=== PATIENT | female | born 1975 | race Caucasian/White ===

== ENCOUNTER → 2020-02-08 10:33 | Outpatient (BNVA) | payer OTHER, SELFPAY | PROVIDERS: Family Provider Internal Medicine; Visit Provider Nurse Practitioner Family | DX: Z20.828 Contact with and (suspected) exposure to other viral communicable diseases (principal) | CPT/HCPCS: 87635 ==

== ENCOUNTER → 2023-01-30 10:17 | Outpatient (BNVA) | payer OTHER, SELFPAY | PROVIDERS: Family Provider Internal Medicine; PCP Family Medicine; Visit Provider Physician Assistant | DX: M23.207 Derangement of unspecified meniscus due to old tear or injury, left knee | CPT/HCPCS: 73560; 73565 ==

== ENCOUNTER 2023-03-05 07:59 | Day surgery (SDC) | payer OTHER, SELFPAY ==
[2023-03-05] VITALS (8 sets, daily range): BP systolic 100–120; BP diastolic 68–85; PULSE 73–107; RESP 16–18; TEMP 36.1–36.2; O2SAT 99–100; BMI 21.2
[2023-03-05] MEDS: scopolamine 1.5 Patch 1 PATCH TRANSDERMA (08:29)
[2023-03-05] MEDS: ketorolac 30 mg/mL INJ IVP (08:29)
[2023-03-05] MEDS: acetaminophen 1,000 MG/100 ML PIGGYBACK 400 MG IV (08:30)
[2023-03-05] MEDS: sodium chloride 0.9% 1,000 ML 30 ML IV (08:32)
--- NOTE | 2023-03-05 08:52 | ANES.PREANE2 ---
Pre-Anesthetic Assessment Height/Weight: Height 1.73 m Weight 63.503 kg Temp Pulse Resp BP Pulse Ox O2 Del Method 97.1 F L 73 17 100/68 100 Room Air 03/05/23 08:14 03/05/23 08:14 03/05/23 08:14 03/05/23 08:14 03/05/23 08:14 03/05/23 08:21 Operation Date: 03/05/23 09:30 Proposed Procedures p Knee Arthroscopy Knee Arthroscopy w/ Medial Menisectomy (partial) vs. repair(Left) - Vipul Jeffries DO Familial anesthetic complications: None Was Beta Nella taken within 24 hours: N/A Was Clonidine taken within 24 hours: N/A Last intake: Intake Last Liquid Date 03/04/23 Last Liquid Time 19:00 Last Solid Date 03/04/23 Last Solid Time 19:00 Social Alcohol (occassional) and No tobacco Exam alert, oriented x 3, clear to auscultation bilaterally and regular rate & rhythm Airway Mallampati: Class II Dentition: full Anesthetic Plan ASA status: 1 Anesthesia: General Risk of > 500 ml blood loss (7ml/kg in children): No Medications/Allergies Home Medications Medication Instructions Recorded Confirmed Last Taken Type citalopram 10 mg tablet 10 mg PO DAILY 02/08/20 03/04/23 03/05/23 History omeprazole 40 mg capsule,delayed 40 mg PO DAILY 02/08/20 03/04/23 03/05/23 History release spironolactone 100 mg tablet 100 mg PO DAILY 02/08/20 03/04/23 03/04/23 History Allergies Allergy/AdvReac Type Severity Reaction Status Date / Time No Known Allergies Allergy Verified 02/11/23 15:33 Current Medications Generic Name Dose Route Start Last Admin Trade Name Freq PRN Reason Stop Dose Admin Sodium Chloride 1,000 mls @ 30 mls/hr 03/05/23 08:15 03/05/23 08:32 Sodium Chloride 0.9% IV 03/06/23 08:14 30 mls/hr .Q24H DEEJAY Administration PFSH Anesthesia Family History Denies family history of Anesthesia complication Social History Smoking and tobacco/nicotine status: never used tobacco/nicotine Alcohol intake: current Alcohol intake frequency: holidays/special occasions only Female Reproductive History Date of last menstrual period: 02/03/23 Data Anesthesia Cardiac Studies: No Data to Display
--- NOTE | 2023-03-05 09:20 | W.PM.OPSUD ---
Surgery/Procedure H&P Update DATE OF PROCEDURE: March 05, 2023 DATE H&P PERFORMED: 02/11/23 H&P UPDATE INFORMATION: I have reviewed H&P completed within last 30 days, I have examined patient prior to procedure and No changes to prior documentation PREOP DIAGNOSIS: Left knee medial meniscus tear, MCL sprain PRIMARY INDICATION FOR PROCEDURE: Left knee medial meniscus tear, MCL sprain PLANNED PROCEDURE: Operation Date: 03/05/23 09:30 Proposed Procedures p Knee Arthroscopy Knee Arthroscopy w/ Medial Menisectomy (partial) vs. repair(Left) - Vipul Jeffries DO
[2023-03-05] MEDS: ceFAZolin 2,000 MG in sodium chloride 0.9% (plus) 50 ML 100 MG IV (09:28)
[2023-03-05] MEDS: lidocaine-epi 2% 20 mL INJ 40 ML INJECTION (09:59)
--- NOTE | 2023-03-05 10:29 | P.BOP_ITS ---
Date of Procedure: [March 05, 2023] Surgeon: [Dr. Nesha WARREN] Certified Industrial Hygienist(s): [Marcus Jeffries physician associate] Procedure(s) performed: [Left knee diagnostic arthroscopy with medial meniscus repair, patellofemoral chondroplasty and extensive synovectomy] Findings of the procedure(s): [Left knee medial meniscus tear] Estimated blood loss: [5 mL] Specimen(s) removed: [N/A] Post-operative diagnosis: [Left knee medial meniscus tear]
--- NOTE | 2023-03-05 10:31 | PM.PACU ---
PACU note Narrative: Patient is a 47-year-old female that underwent a left knee diagnostic arthroscopy with medial meniscus repair. pt transferred to PACU in stable condition. Dressing is dry. Patient is wearing left knee immobilizer. Pt is awake and alert. pt can wiggle toes and plantarflex and dorsiflex foot. pt able to perform straight leg raise, Femoral nerve intact. Distal pulses are palpable toes are warm and well-perfused. Cap refill is normal and under 2 seconds. Sensation to foot is intact. Pain is controlled. Exam: awake Disposition: discharged
[2023-03-05] MEDS: HYDROcodone-acetaminophen 5-325 mg Tablet 1 TAB PO (11:43)
--- NOTE | 2023-03-05 17:38 | PM.OP ---
Operative Report Date of procedure: March 05, 2023 Pre-op diagnosis: Left knee medial meniscus tear and MCL sprain Implants: Arthrex meniscal fiber stitch x1 Surgeon: Vipul Jeffries DO Learning And Development Coordinator: Marcus Jeffries PA-C: RICHI was necessary for assistance in this case by holding leg positioning as well as to assist with instrumentation and medial meniscus repair as well as assist in wound closure. Procedure: Post-op diagnosis: Left?knee?medial meniscus tear Left?knee?extensive synovitis Left knee patellofemoral chondromalacia Procedure done: Left?knee?diagnostic and surgical arthroscopy medial meniscus repair Left?knee?diagnostic and surgical arthroscopy with extensive synovectomy of the medial lateral and patellofemoral compartments Left?knee?diagnostic and surgical arthroscopy with patellofemoral compartment chondroplasty Surgeon: Vipul Jeffries DO Estimated blood loss: 1cc Tourniquet: No tourniquet was used IV fluids: See anesthesia record Complications: None Findings: See operative report narrative Condition: stable Disposition: same day Brief History: Patient is a 47-year-old male with right?knee?pain.? Patient has failed conservative treatment who has been worked up for left knee?pain in the outpatient setting. MRI findings consistent with tear of the medial meniscus and MCL sprain. talked in the office about treatment options patient would like to proceed with a left?knee?diagnostic and surgical arthroscopy with partial medial meniscectomy versus repairy.? Patient understand the ins and outs of the procedure the risk benefits complication alternatives to treatment options.? Understanding risk of surgery they agree to proceed with surgical intervention.?? Understanding this and patient agree to proceed with surgical intervention all questions answered. Procedure: Patient seen and evaluated in the preoperative holding area.? Consent was reviewed and signed with patient.? Correct extremity was then marked.? Patient seen evaluated Anesthesia Department once cleared for surgery patient was taken back to the operative suite.? Patient was transported onto the OR table in supine position.? All bony prominences well-padded patient was appropriate secured to the bed.? Once appropriately anesthetized a nonsterile tourniquet was applied to the left thigh.? The left lower extremity was then prepped and draped in standard orthopedic fashion.? Final timeout performed.? Patient received appropriate preoperative antibiotics. Patient received local anesthetic of lidocaine with epinephrine into the joint as well as around the portal sites.? No tourniquet was inflated A standard 2 portal vertical incision diagnostic and surgical arthroscopy of the right?knee?was performed in standard fashion.? Small stab incision made in the inferolateral portal introduced trocar and arthroscope into the suprapatellar pouch.? Suprapatellar pouch was subsequently visualized and found to have significant synovitis but no loose bodies.? Patient had noticeable significant inflamed infrapatellar fat pad and thickening hypertrophic within the patellofemoral compartment.? ?The medial gutter was free of loose bodies I then introduced the arthroscope into the medial compartment.? Within the medial compartment I then established my inferior medial working portal utilizing spinal needle outside in technique.? Once established I then visualized our articular cartilage of the medial compartment with a valgus stress.? Patient was found to have grade 1-2chondromalacia throughout the medial compartment.? Next I inspected the meniscus.? With an arthroscopic probe was utilized to visual? all aspects of the meniscus.? Meniscal root was found to be intact.? Tear at the meniscocapsular junction at the transition of the body to the posterior horn of the medial meniscus the meniscus was found to be extremely hyper unstable and was able to be pulled and through the tear and completely into the joint. In order to restore stability as well as the tear being located along the periphery and red red zone I felt this would be appropriate for repair and given her young age and good appearing cartilage on my arthroscopy procedure elected for repair. This was a small tear. In order for appropriate visualization and not damaging the cartilage utilize a spinal needle with small fenestration of the MCL to have medial space opening. Once this was performed I then introduced a half pipe and loaded and Arthrex fiber stitch implant this was then glided into the appropriate position with care to not damage the articular cartilage. I then placed a simple horizontal mattress stitch at the tear site to adhere to repair the undersurface tear of the meniscus at the meniscal capsular junction this had excellent adherence I then subsequently utilized arthroscopic suture cutter to remove excess suture I then introduced the arthroscopic probe and was found to have a stable meniscal repair. This completed medial compartment work. Next a introduced the arthroscope to the intercondylar notch.? PCL and ACL were intact. patient had significant thickening of the infrapatellar fat pad spanning into the medial and lateral compartments.? I then performed an extensive synovectomy with the arthroscopic shaver of the patellofemoral medial and lateral compartments as well as the intercondylar notch. Advance the?scope?into the retrocruciate space and no loose bodies were found. Next I introduced the arthroscope into the lateral compartment the lateral compartment was found to have grade1 chondromalacia.? Lateral meniscus was found to be intact.? The root was intact.? Given the grade 1 chondromalacia there is no unstable cartilage pieces to perform chondroplasty.? This completed my work of the lateral compartment and then performed a synovectomy of the lateral compartment.? Next of the arthroscope was placed into the lateral gutter and this was free of loose bodies.? Finally I reintroduced the arthroscope into the patellofemoral compartment.? The patellofemoral was found to have grade 1-2 chondromalacia of the patellofemoral compartment. There was a small focal area of advanced grade 2 I then utilized thermal wand and arthroscopic shaver to debride this area of unstable articular tissue to stable articular cartilage. This completed my patellofemoral compartment chondroplasty. at this point I utilized arthroscopic shaver as well as thermal wand to perform extensive synovectomy of the patellofemoral compartment. This completed my work of the patellofemoral space.? I then switch my portal sites to the medial working portal.? Completed the rest of my synovectomy and the rest of my examination arthroscopy was normal. All fluid was suctioned from the joint.? ?All instruments were withdrawn.? Portal sites were closed with interrupted nylon suture.? portal sites were then covered with with Xeroform 4 x 4's ABD Curlex and Nestor wrap.? Patient was then subsequently awakened from anesthesia and taken to PACU in stable condition. Disposition: Patient taken to PACU in stable condition recovering well.? Will receive appropriate discharge structure as well as pain medication postoperatively as well as? DVT prophylaxis.we will have patient follow-up with us in the office in 2 weeks.? Patient will be toe-touch weightbearing to the operative extremity. Patient will follow meniscal repair protocol will be limited on knee range of motion only 0-90 for the first 6 weeks. Patient placed into a hinged knee brace postoperatively.? Patient understands and agrees with current plan.? All questions answered..
[2023-03-06 07:40] LABS: OR HCG Qualitative Urine Negative (Negative)
== END 2023-03-05 12:05 | disposition home or self-care (01) ==
PROVIDERS: PCP Family Medicine; Visit Provider Student in an Organized Health Care Education/Training Program
PROC: (CPT 29870; principal; 2023-03-05 09:20)
DX: S83.242A Other tear of medial meniscus, current injury, left knee, initial encounter (principal); X58.XXXA Exposure to other specified factors, initial encounter; M65.88 Other synovitis and tenosynovitis, other site; M22.42 Chondromalacia patellae, left knee
CPT/HCPCS: 29876; 29881; 81025; 84703; 97760; C1713; J0131; J0690; J1100; J1885; J2250; J2405; J2704; J3010; J7030; L1832

== ENCOUNTER 2023-03-24 14:59 | Outpatient (RCR) | payer OTHER, SELFPAY | END 2023-04-17 23:59 | disposition home or self-care (01) | LOC: SPT 14:59 | PROVIDERS: PCP Student in an Organized Health Care Education/Training Program; Visit Provider Student in an Organized Health Care Education/Training Program | DX: S83.242D Other tear of medial meniscus, current injury, left knee, subsequent encounter (principal); X58.XXXD Exposure to other specified factors, subsequent encounter; Z98.890 Other specified postprocedural states; M25.562 Pain in left knee; R26.2 Difficulty in walking, not elsewhere classified | CPT/HCPCS: 97110; 97161; G0283 ==

== ENCOUNTER 2023-04-18 06:00 | Outpatient (RCR) | payer OTHER, SELFPAY | END 2023-05-18 23:59 | disposition home or self-care (01) | LOC: SPT 06:00 | PROVIDERS: PCP Student in an Organized Health Care Education/Training Program; Visit Provider Student in an Organized Health Care Education/Training Program | DX: Z98.890 Other specified postprocedural states (principal) | CPT/HCPCS: 97110; G0283 ==

== ENCOUNTER 2023-05-19 06:00 | Outpatient (RCR) | payer OTHER, SELFPAY | END 2023-06-18 23:59 | disposition home or self-care (01) | LOC: SPT 06:00 | PROVIDERS: PCP Student in an Organized Health Care Education/Training Program; Visit Provider Student in an Organized Health Care Education/Training Program | DX: Z98.890 Other specified postprocedural states (principal) | CPT/HCPCS: 97110 ==

== ENCOUNTER 2023-06-19 06:00 | Outpatient (RCR) | payer OTHER, SELFPAY | END 2023-07-17 23:59 | disposition home or self-care (01) | LOC: SPT 06:00 | PROVIDERS: PCP Student in an Organized Health Care Education/Training Program; Visit Provider Student in an Organized Health Care Education/Training Program | DX: Z98.890 Other specified postprocedural states (principal) | CPT/HCPCS: 97110 ==